=== PATIENT | male | born 1980 | race Caucasian/White ===

== ENCOUNTER 2022-10-23 07:59 | Outpatient (CLI) | payer BC, OTHER | END 2022-10-23 08:30 | LOC: SLEEP 07:59 | PROVIDERS: ATTEND Family Medicine | DX: G47.33 Obstructive sleep apnea (adult) (pediatric) (principal); G47.10 Hypersomnia, unspecified; G47.00 Insomnia, unspecified; G47.69 Other sleep related movement disorders; G47.36 Sleep related hypoventilation in conditions classified elsewhere; R06.83 Snoring; I10 Essential (primary) hypertension; R51.9 Headache, unspecified | CPT/HCPCS: G0399 ==

== ENCOUNTER 2022-12-04 19:40 | Outpatient (CLI) | payer BC | END 2022-12-05 05:55 | disposition home or self-care (01) | LOC: SLEEP 19:40 | PROVIDERS: ATTEND Family Medicine | DX: G47.33 Obstructive sleep apnea (adult) (pediatric) (principal) | CPT/HCPCS: 95811 ==